=== PATIENT | female | born 1970 | race Caucasian/White ===

== ENCOUNTER 2018-03-22 15:02 | Emergency (ER) | payer BC ==
[~2018-03-22] VITALS: Ht 147.3 cm; Wt 40.9 kg
[2018-03-22 15:32] VITALS: Ht 147.3 cm; Wt 40.9 kg
[2018-03-22] MEDS ORDERED: LAMICTAL200 MG PO (15:34)
[2018-03-22] MEDS ORDERED: XANAX2 MG PO (15:35)
[2018-03-22] MEDS ORDERED: SONATA5 MG PO (15:36)
[2018-03-22 16:25] LABS: BASOPHILS 0.2 % (0-2); EOSINOPHILS 0.3 % (0-7); HEMATOCRIT 44.7 % (36.0-48.0); HEMOGLOBIN 15.2 g/dL (12-16); IMMATURE GRANULOCYTES 0.1 % (0-5); LYMPHOCYTES 15.4 % (15-50); MCH 28.9 pg (26.0-34.0); MEAN PLATELET VOLUME 10.3 fL (7.4-10.4); MONOCYTES 4.6 % (2-11); NEUTROPHILS 79.4 % (40-80); PLATELET COUNT 313 10x3/uL (130-400); RBC 5.26 10x6/uL (4.00-5.40); RDW 12.6 % (11.5-14.5); WBC 9.3 10x3/uL (4.8-10.8)
[2018-03-22 16:41] LABS: ALKALINE PHOSPHATASE 82 U/L (46-116); ALT (SGPT) 18 U/L (10-68); BILIRUBIN - TOTAL 0.36 mg/dL (0.2-1.3); CALC OSMOLALITY 276 mosm/kg (275-300); CALCIUM 10.5 mg/dL (8.5-10.1); CARBON DIOXIDE 24.9 mmol/L (21.0-32.0); CHLORIDE - SERUM 101 mmol/L (98-107); CREATININE - SERUM 0.7 mg/dL (0.6-1.3); GLUCOSE 92 mg/dL (74-106); POTASSIUM - SERUM 3.9 mmol/L (3.5-5.1); PROTEIN - SERUM 8.3 g/dL (6.4-8.2); SODIUM 138 mmol/L (136-145); UREA NITROGEN 15 mg/dL (7-18); eGFR NON AFRICAN AMERICAN > 90 mL/min (90-120)
[2018-03-22 16:48] LABS: TROPONIN-I < 0.017 ng/mL (0.000-0.060)
[2018-03-22 18:06] LABS: CKMB 0.3 U/L (0.0-3.6); CREATINE KINASE 24 UL (21-215); PRO BNP 20 pg/mL (0-125)
[2018-03-22 20:25] LABS: BASOPHILS 0.2 % (0-2); EOSINOPHILS 0.5 % (0-7); HEMATOCRIT 41.2 % (36.0-48.0); HEMOGLOBIN 13.8 g/dL (12-16); IMMATURE GRANULOCYTES 0.1 % (0-5); LYMPHOCYTES 24.8 % (15-50); MCH 28.2 pg (26.0-34.0); MCHC 33.5 g/dL (31.0-37.0); MCV 84.3 fL (80.0-100.0); MEAN PLATELET VOLUME 10.1 fL (7.4-10.4); MONOCYTES 7.1 % (2-11); NEUTROPHILS 67.3 % (40-80); PLATELET COUNT 305 10x3/uL (130-400); RBC 4.89 10x6/uL (4.00-5.40); RDW 12.5 % (11.5-14.5); WBC 8.6 10x3/uL (4.8-10.8)
[2018-03-22 20:46] LABS: ALBUMIN 3.7 g/dL (3.4-5.0); ALKALINE PHOSPHATASE 69 U/L (46-116); ALT (SGPT) 17 U/L (10-68); BILIRUBIN - TOTAL 0.35 mg/dL (0.2-1.3); CALC OSMOLALITY 275 mosm/kg (275-300); CALCIUM 10.1 mg/dL (8.5-10.1); CARBON DIOXIDE 23.2 mmol/L (21.0-32.0); CHLORIDE - SERUM 101 mmol/L (98-107); CREATININE - SERUM 0.7 mg/dL (0.6-1.3); GLUCOSE 96 mg/dL (74-106); POTASSIUM - SERUM 3.8 mmol/L (3.5-5.1); PROTEIN - SERUM 7.7 g/dL (6.4-8.2); SODIUM 138 mmol/L (136-145); UREA NITROGEN 13 mg/dL (7-18); eGFR NON AFRICAN AMERICAN > 90 mL/min (90-120)
[2018-03-22 20:56] LABS: THYROID STIMULATING HORMONE 1.23 uIU/mL (0.36-3.74)
[2018-03-22 20:57] LABS: TROPONIN-I < 0.017 ng/mL (0.000-0.060)
[2018-03-22] MEDS ORDERED: KLONOPIN1 MG PO ×2 (22:43→22:47)
[2018-03-22] MEDS ORDERED: TOPROL XL25 MG PO ×2 (22:43→22:47)
[2018-03-22 23:16] VITALS: BP 116/59
== END 2018-03-22 23:16 | disposition home or self-care (01) ==
LOC: D.ER 15:02 → EDBD 15:02 → D.ER 23:16
PROVIDERS: Emergency Medicine; Family Medicine
DX: F41.9 Anxiety disorder, unspecified (principal)

== ENCOUNTER 2018-05-29 17:21 | Inpatient (IN) | payer BC ==
[~2018-05-29] VITALS: Ht 147.3 cm; Wt 38.6 kg
--- NOTE | ~2018-05-29 | MORECARE ---
CASE MANAGEMENT DISCHARGE SUMMARY PATIENT: NATIVIDAD EDWARDS UNIT: [id number] ADM DATE: 05/29/18 AGE: 47 : 66 SEX: F ROOM/BED: D.1212 AUTHOR: DAVIAN,DOC PHYSICIAN: REFERRING PHYSICIAN: REEMA MARTINEZ MD DATE OF SERVICE: 05/31/18 Discharge Plan Patient Name: NATIVIDAD EDWARDS Facility: [facility]:[place] : 1970 Planned Disposition: Home Anticipated Discharge Date: Discharge Date: 05/31/2018 Expected LOS: Initial Reviewer: [email or web address] Initial Review Date: 05/30/2018 Generated: 05/31/18 6:44 pm DCP- Discharge Planning Updated by [email or web address]: Viji Velasquez on 05/30/18 1:[address] Patient Name: NATIVIDAD EDWARDS Admission Status: ER Accout number: [id number] Admission Date: 05-29-2018 : 1970 Admission Diagnosis: Attending: REEMA MARTINEZ Current LOS: 1 Anticipated DC Date: Planned Disposition: Home Primary Insurance: [employer] EXCHANGE Discharge Planning Comments: CM met with patient at bedside after obtaining verbal consent. Patient plans on returning to her home with her after discharge. Patient denies any discharge needs at this time. CM will continue to follow and assist as needed with discharge planning / needs Regional Sales Leader: Viji Velasquez DCPIA - Discharge Planning Initial Assessment Updated by [email or web address]: Viji Velasquez on 05/30/18 2:44 pm * Is the patient Alert and Oriented? Yes * How many steps to enter\exit or inside your home? * PCP Dr. Kim Moyer APN * Pharmacy [facility] * Preadmission Environment Home with Family * ADLs Independent * Equipment None * Verbal permission to speak to the caregivers and representatives has been obtained from the patient. Yes * Community resources currently utilized None * Additional services required to return to the preadmission environment? No * Can the patient safely return to the preadmission environment? Yes * Has this patient been hospitalized within the prior 30 days at any hospital? No Last DP export: 05/30/18 1:56 Patient Name: NATIVIDAD EDWARDS Page [id number] at 1744 All edits/amendments must be made on the electronic document DICTATION DATE: 05/31/181742 REVENUE STAMP CLERK: BETHANIE 05/31/181742 RPT#: [id number] DC DATE:05/31/18 STATUS: DIS IN [facility] [address] [place] [address] END OF REPORT
--- NOTE | ~2018-05-29 | MORECARE ---
CASE MANAGEMENT DISCHARGE SUMMARY PATIENT: NATIVIDAD EDWARDS UNIT: [id number] ADM DATE: 05/29/18 AGE: 47 : 66 SEX: F ROOM/BED: D.1212 AUTHOR: DAVIAN,DOC PHYSICIAN: REFERRING PHYSICIAN: REEMA MARTINEZ MD DATE OF SERVICE: 05/30/18 Discharge Plan Patient Name: NATIVIDAD EDWARDS Facility: [facility]:[place] : 1970 Planned Disposition: Home Anticipated Discharge Date: Discharge Date: Expected LOS: Initial Reviewer: [email or web address] Initial Review Date: 05/30/2018 Generated: 05/30/18 3:56 pm Comments DCP- Discharge Planning Updated by [email or web address]: Viji Velasquez on 05/30/18 1:[address] Patient Name: NATIVIDAD EDWARDS Admission Status: ER Accout number: [id number] Admission Date: 05-29-2018 : 1970 Admission Diagnosis: Attending: REEMA MARTINEZ Current LOS: 1 Anticipated DC Date: Planned Disposition: Home Primary Insurance: [employer] EXCHANGE Discharge Planning Comments: CM met with patient at bedside after obtaining verbal consent. Patient plans on returning to her home with her after discharge. Patient denies any discharge needs at this time. CM will continue to follow and assist as needed with discharge planning / needs Operations Staff Specialist Security: Viji Velasquez DCPIA - Discharge Planning Initial Assessment Updated by [email or web address]: Viji Velasquez on 05/30/18 2:44 pm * Is the patient Alert and Oriented? Yes * How many steps to enter\exit or inside your home? * PCP Dr. Kim Moyer APN * Pharmacy [facility] * Preadmission Environment Home with Family * ADLs Independent * Equipment None * Verbal permission to speak to the caregivers and representatives has been obtained from the patient. Yes * Community resources currently utilized None * Additional services required to return to the preadmission environment? No * Can the patient safely return to the preadmission environment? Yes * Has this patient been hospitalized within the prior 30 days at any hospital? No Last DP export: 05/30/18 1:47 Patient Name: NATIVIDAD EDWARDS Page [id number] at 1456 All edits/amendments must be made on the electronic document DICTATION DATE: 05/30/181454 PROGRAM OFFICER: BETHANIE 05/30/181454 RPT#: [id number] DC DATE: STATUS: ADM IN [facility] [address] [place] [address] END OF REPORT
--- NOTE | ~2018-05-29 | MORECARE ---
CASE MANAGEMENT DISCHARGE SUMMARY PATIENT: NATIVIDAD EDWARDS UNIT: [id number] ADM DATE: 05/29/18 AGE: 47 : 66 SEX: F ROOM/BED: D.1212 AUTHOR: TERE MARCELO PHYSICIAN: REFERRING PHYSICIAN: REEMA MARTINEZ MD DATE OF SERVICE: 05/30/18 Discharge Plan Patient Name: NATIVIDAD EDWARDS Facility: [facility]:[place] : 1970 Planned Disposition: Home Anticipated Discharge Date: Discharge Date: Expected LOS: Initial Reviewer: [email or web address] Initial Review Date: 05/30/2018 Generated: 05/30/18 3:47 pm DCPIA - Discharge Planning Initial Assessment Updated by [email or web address]: Viji Velasquez on 05/30/18 2:44 pm * Is the patient Alert and Oriented? Yes * How many steps to enter\exit or inside your home? * PCP Dr. Kim Moyer APN * Pharmacy [facility] * Preadmission Environment Home with Family * ADLs Independent * Equipment None * Verbal permission to speak to the caregivers and representatives has been obtained from the patient. Yes * Community resources currently utilized None * Additional services required to return to the preadmission environment? No * Can the patient safely return to the preadmission environment? Yes * Has this patient been hospitalized within the prior 30 days at any hospital? No Patient Name: NATIVIDAD EDWARDS Page [id number] at 1447 All edits/amendments must be made on the electronic document DICTATION DATE: 05/30/18 1446 OFFICE CASHIER: BETHANIE 05/30/18 1446 RPT#: [id number] DC DATE: STATUS: ADM IN [facility] [address] [place] [address] END OF REPORT
[~2018-05-29 17:21] MED LIST: KLONOPIN1 MG PO; LAMICTAL200 MG PO; SONATA5 MG PO; TOPROL XL25 MG PO; XANAX2 MG PO
[2018-05-29 18:05] LABS: BASOPHILS 0.2 % (0-2); EOSINOPHILS 1.2 % (0-7); HEMATOCRIT 43.4 % (36.0-48.0); HEMOGLOBIN 14.8 g/dL (12-16); IMMATURE GRANULOCYTES 0.2 % (0-5); LYMPHOCYTES 26.3 % (15-50); MCH 29.1 pg (26.0-34.0); MCHC 34.1 g/dL (31.0-37.0); MCV 85.4 fL (80.0-100.0); MEAN PLATELET VOLUME 9.9 fL (7.4-10.4); MONOCYTES 7.6 % (2-11); NEUTROPHILS 64.5 % (40-80); RBC 5.08 10x6/uL (4.00-5.40); RDW 13.8 % (11.5-14.5)
[2018-05-29 18:06] LABS: PLATELET COUNT 427 10x3/uL (130-400)
[2018-05-29 18:23] LABS: ALBUMIN 3.5 g/dL (3.4-5.0); ALKALINE PHOSPHATASE 60 U/L (46-116); ALT (SGPT) 19 U/L (10-68); BILIRUBIN - TOTAL 0.22 mg/dL (0.2-1.3); CALC OSMOLALITY 279 mosm/kg (275-300); CHLORIDE - SERUM 103 mmol/L (98-107); CREATININE - SERUM 1.1 mg/dL (0.6-1.3); GLUCOSE 111 mg/dL (74-106); POTASSIUM - SERUM 3.5 mmol/L (3.5-5.1); PROTEIN - SERUM 8.5 g/dL (6.4-8.2); SODIUM 139 mmol/L (136-145); UREA NITROGEN 14 mg/dL (7-18); eGFR NON AFRICAN AMERICAN 56 mL/min (90-120)
[2018-05-29 18:31] LABS: APTT 24.3 SECONDS (22.8-39.4); INR 0.96 (0.85-1.17); PROTIME 12.4 SECONDS (11.6-15.0)
[2018-05-29 18:32] LABS: D-DIMER-QUANTITATIVE 2.61 ug/mLFEU (0.20-0.54)
[2018-05-29 18:37] LABS: CREATINE KINASE 21 UL (21-215); PRO BNP 53 pg/mL (0-125); THYROID STIMULATING HORMONE 5.66 uIU/mL (0.36-3.74)
[2018-05-29 18:47] LABS: TROPONIN-I < 0.017 ng/mL (0.000-0.060)
[2018-05-29 19:00] VITALS: BP 112/76
[2018-05-29 20:00] VITALS: BP 110/67
[2018-05-29 21:05] VITALS: BP 104/71
[2018-05-29 21:30] VITALS: BP 96/61
[2018-05-29 21:42] LABS: APPEARANCE CLEAR (CLEAR); BILIRUBIN NEGATIVE (NEGATIVE); COLOR YELLOW (YELLOW); GLUCOSE NEGATIVE (NEGATIVE); KETONE NEGATIVE (NEGATIVE); NITRITE NEGATIVE (NEGATIVE); PROTEIN NEGATIVE (NEGATIVE); SPECIFIC GRAVITY 1.015 (1.005-1.020); UROBILINOGEN NORMAL (NORMAL)
[2018-05-29 21:55] LABS: UDS - AMPHET NEGATIVE QUAL (NEGATIVE); UDS - BARB NEGATIVE QUAL (NEGATIVE); UDS - BENZO NEGATIVE QUAL (NEGATIVE); UDS - COCAINE NEGATIVE QUAL (NEGATIVE); UDS - OPIATE NEGATIVE QUAL (NEGATIVE); UDS - PCP NEGATIVE QUAL (NEGATIVE); UDS - THC NEGATIVE QUAL (NEGATIVE)
[2018-05-30] VITALS (7 sets, daily range): BP systolic 93–115; BP diastolic 38–71; Ht 147.3 cm; Wt 38.6 kg
[2018-05-31] VITALS: BP 80/52
[2018-05-31 04:00] VITALS: BP 96/64
[2018-05-31 07:24] VITALS: BP 106/62
[2018-05-31] MEDS ORDERED: ELIQUIS5 MG PO (07:56)
[2018-05-31 11:27] VITALS: BP 93/63
== END 2018-05-31 13:07 | disposition home or self-care (01) | DRG 176 ==
LOC: D.ER 17:21 → D.M3 20:39
PROVIDERS: Family Medicine
DX: I26.99 Other pulmonary embolism without acute cor pulmonale (principal); F31.30 Bipolar disorder, current episode depressed, mild or moderate severity, unspecified; Z68.1 Body mass index [BMI] 19.9 or less, adult; Z91.14 Patient's other noncompliance with medication regimen; F41.9 Anxiety disorder, unspecified; E03.9 Hypothyroidism, unspecified; R00.0 Tachycardia, unspecified; R63.4 Abnormal weight loss

== ENCOUNTER 2018-06-11 19:17 | Observation (INO) | payer BC ==
[~2018-06-11] VITALS: Ht 147.3 cm; Wt 51.8 kg
--- NOTE | ~2018-06-11 | MORECARE ---
CASE MANAGEMENT DISCHARGE SUMMARY PATIENT: NATIVIDAD EDWARDS UNIT: [id number] ADM DATE: 06/11/18 AGE: 47 : 66 SEX: F ROOM/BED: D.2117 AUTHOR: TERE MARCELO PHYSICIAN: REFERRING PHYSICIAN: REEMA MARTINEZ MD DATE OF SERVICE: 06/12/18 Discharge Plan Patient Name: NATIVIDAD EDWARDS Facility: [facility]:[place] : 1970 Planned Disposition: Home Anticipated Discharge Date: 06/12/18 Discharge Date: 06/12/2018 Expected LOS: 1 Initial Reviewer: [email or web address] Initial Review Date: 06/12/2018 Generated: 06/12/18 5:42 pm Patient Name: NATIVIDAD EDWARDS Page 01582 at 1643 All edits/amendments must be made on the electronic document DICTATION DATE: 06/12/181641 ORACLE BUSINESS INTELLIGENCE DEVELOPER: BETHANIE 06/12/181641 RPT#: [id number] DC DATE:06/12/18 STATUS: DIS IN [facility] [address] [place] [address] END OF REPORT
[~2018-06-11 19:17] MED LIST changes: +ELIQUIS5 MG PO
[2018-06-11 19:38] LABS: BASOPHILS 0.2 % (0-2); HEMATOCRIT 42.3 % (36.0-48.0); HEMOGLOBIN 14.2 g/dL (12-16); IMMATURE GRANULOCYTES 0.2 % (0-5); LYMPHOCYTES 19.3 % (15-50); MCH 28.7 pg (26.0-34.0); MCHC 33.6 g/dL (31.0-37.0); MCV 85.6 fL (80.0-100.0); MEAN PLATELET VOLUME 9.3 fL (7.4-10.4); MONOCYTES 7.9 % (2-11); NEUTROPHILS 71.4 % (40-80); RBC 4.94 10x6/uL (4.00-5.40); RDW 14.3 % (11.5-14.5); WBC 10.4 10x3/uL (4.8-10.8)
[2018-06-11 19:42] LABS: PLATELET COUNT 528 10x3/uL (130-400)
[2018-06-11 19:50] LABS: INR 1.13 (0.85-1.17); PROTIME 14.1 SECONDS (11.6-15.0)
[2018-06-11 20:08] LABS: ALBUMIN 3.4 g/dL (3.4-5.0); ALKALINE PHOSPHATASE 57 U/L (46-116); ALT (SGPT) 24 U/L (10-68); BILIRUBIN - TOTAL 0.18 mg/dL (0.2-1.3); CALC OSMOLALITY 281 mosm/kg (275-300); CARBON DIOXIDE 26.3 mmol/L (21.0-32.0); CHLORIDE - SERUM 103 mmol/L (98-107); CREATINE KINASE 8 UL (21-215); CREATININE - SERUM 1.2 mg/dL (0.6-1.3); GLUCOSE 128 mg/dL (74-106); POTASSIUM - SERUM 4.1 mmol/L (3.5-5.1); PROTEIN - SERUM 9.2 g/dL (6.4-8.2); SODIUM 140 mmol/L (136-145); UREA NITROGEN 16 mg/dL (7-18); eGFR NON AFRICAN AMERICAN 51 mL/min (90-120)
[2018-06-11 20:10] LABS: CALCIUM 12.3 mg/dL (8.5-10.1); TROPONIN-I < 0.017 ng/mL (0.000-0.060)
[2018-06-11 20:35] VITALS: BP 114/78
[2018-06-11 23:57] VITALS: BMI 16.9
[2018-06-12] VITALS: BP 119/82
[2018-06-12 05:55] LABS: BASOPHILS 0.2 % (0-2); EOSINOPHILS 2.1 % (0-7); HEMATOCRIT 36.2 % (36.0-48.0); HEMOGLOBIN 11.7 g/dL (12-16); IMMATURE GRANULOCYTES 0.2 % (0-5); LYMPHOCYTES 27.7 % (15-50); MCH 27.9 pg (26.0-34.0); MCHC 32.3 g/dL (31.0-37.0); MCV 86.4 fL (80.0-100.0); MEAN PLATELET VOLUME 9.7 fL (7.4-10.4); MONOCYTES 8.5 % (2-11); NEUTROPHILS 61.3 % (40-80); PLATELET COUNT 456 10x3/uL (130-400); RBC 4.19 10x6/uL (4.00-5.40); RDW 14.5 % (11.5-14.5); WBC 8.7 10x3/uL (4.8-10.8)
[2018-06-12 05:57] VITALS: BP 113/75
[2018-06-12 06:05] LABS: ALBUMIN 2.7 g/dL (3.4-5.0); ALKALINE PHOSPHATASE 43 U/L (46-116); BILIRUBIN - TOTAL 0.38 mg/dL (0.2-1.3); CALC OSMOLALITY 278 mosm/kg (275-300); CALCIUM 10.9 mg/dL (8.5-10.1); CARBON DIOXIDE 23.5 mmol/L (21.0-32.0); CHLORIDE - SERUM 107 mmol/L (98-107); CREATINE KINASE 33 UL (21-215); GLUCOSE 105 mg/dL (74-106); POTASSIUM - SERUM 4.5 mmol/L (3.5-5.1); PROTEIN - SERUM 7.2 g/dL (6.4-8.2); SODIUM 140 mmol/L (136-145); UREA NITROGEN 12 mg/dL (7-18)
[2018-06-12 06:13] LABS: ALT (SGPT) 17 U/L (10-68); CREATININE - SERUM 0.7 mg/dL (0.6-1.3); eGFR NON AFRICAN AMERICAN > 90 mL/min (90-120)
[2018-06-12 07:07] LABS: TROPONIN-I < 0.017 ng/mL (0.000-0.060)
[2018-06-12 11:47] VITALS: BP 115/77
[2018-06-12 12:50] VITALS: Ht 147.3 cm; Wt 51.8 kg
[2018-06-12] MEDS ORDERED: ELIQUIS5 MG PO (12:57)
[2018-06-13 10:22] LABS: CA125 73.2 U/mL (0.0-38.1); CEA 1.2 ng/mL (0.0-4.7); FOLATE (FOLIC ACID) - SERUM 10.8 ng/mL (>3.0)
[2018-06-13 11:17] LABS: ACLA - IGG AB <9 GPL U/mL (0-14); ACLA - IGM AB <9 MPL U/mL (0-12)
[2018-06-13 18:09] LABS: CA 27-29 23.3 U/mL (0.0-38.6)
== END 2018-06-12 16:25 | disposition home or self-care (01) ==
LOC: D.ER 19:17 → D.M2 22:46 → OBSVTIME 22:46 → D.M2 22:46
PROVIDERS: Family Medicine; Internal Medicine Hematology & Oncology
DX: I26.99 Other pulmonary embolism without acute cor pulmonale (principal); R00.0 Tachycardia, unspecified; F41.9 Anxiety disorder, unspecified; F31.9 Bipolar disorder, unspecified; E03.9 Hypothyroidism, unspecified; E83.52 Hypercalcemia

== ENCOUNTER → 2018-09-05 14:39 | Outpatient (CLI) | payer BC ==
[2018-06-12 12:50] VITALS: BMI 16.9
== END | disposition home or self-care (01) ==
LOC: D.RAD 14:39
DX: R13.10 Dysphagia, unspecified (principal)

== ENCOUNTER → 2020-11-18 13:17 | Outpatient (CLI) | payer MEDICARE ==
[2018-06-12 12:50] VITALS: BMI 16.9
== END | disposition home or self-care (01) ==
LOC: D.CT 13:17
PROVIDERS: ATTEND Internal Medicine Hematology & Oncology
DX: I26.99 Other pulmonary embolism without acute cor pulmonale (principal); F31.9 Bipolar disorder, unspecified

== ENCOUNTER → 2021-01-05 15:11 | Outpatient (CLI) | payer MEDICARE ==
[2018-06-12 12:50] VITALS: BMI 16.9
== END | disposition home or self-care (01) ==
LOC: D.LAB 15:11
PROVIDERS: ATTEND Internal Medicine Hematology & Oncology
DX: E83.52 Hypercalcemia (principal); I26.99 Other pulmonary embolism without acute cor pulmonale; F31.9 Bipolar disorder, unspecified